=== PATIENT | female | born 1970 | race Caucasian/White ===

== ENCOUNTER 2018-07-15 21:16 | Emergency (ER) | payer SELFPAY ==
[2018-07-15] MEDS ORDERED: Bupivacaine PF 0.5% 30 ML VIAL ONE (21:44)
== END 2018-07-15 22:18 | disposition home or self-care (01) ==
LOC: MADERS 21:16
DX: K04.7 Periapical abscess without sinus (principal); F17.210 Nicotine dependence, cigarettes, uncomplicated; Z79.891 Long term (current) use of opiate analgesic
CPT/HCPCS: 64400; S0020

== ENCOUNTER 2018-11-05 21:14 | Emergency (ER) | payer SELFPAY ==
[2018-11-05] MEDS ORDERED: Acetaminophen/Codeine 30-300mg Tablet ONE (22:00)
[2018-11-05] MEDS ORDERED: Ibuprofen 800 MG TAB ONE (22:01)
[2018-11-05] MEDS ORDERED: metroNIDAZOLE 250 MG TAB ONE ×2 (22:01→22:02)
[2018-11-05] MEDS ORDERED: Amoxicillin/Potassium Clav 875 MG TAB ONE (22:01)
== END 2018-11-05 23:32 | disposition home or self-care (01) ==
LOC: MADERS 21:14
DX: K11.5 Sialolithiasis (principal); K05.00 Acute gingivitis, plaque induced; Z71.6 Tobacco abuse counseling; F17.210 Nicotine dependence, cigarettes, uncomplicated
CPT/HCPCS: 99406

== ENCOUNTER 2019-11-01 18:16 | Emergency (ER) | payer SELFPAY ==
[2019-11-01] MEDS ORDERED: Bicillin LA 1.2 MILLION UNITS/2 ML SYRINGE ONE (18:58)
[2019-11-01] MEDS ORDERED: traMADol HCl 50 MG TAB ONE (20:43)
== END 2019-11-01 19:22 | disposition home or self-care (01) ==
LOC: MADERS 18:16
DX: K04.7 Periapical abscess without sinus (principal); F17.210 Nicotine dependence, cigarettes, uncomplicated
CPT/HCPCS: 96372; 99282; J0561

== ENCOUNTER 2019-11-02 11:21 | Emergency (ER) | payer SELFPAY ==
[2019-11-02] MEDS ORDERED: Ketorolac Tromethamine 60 MG/2 ML VIAL ONE (11:48)
[2019-11-02] MEDS ORDERED: Lidocaine Viscous Sol 2% 15 ml UD Cup ONE (11:48)
[2019-11-02] MEDS ORDERED: Fentanyl 100 MCG/2 ML VIAL ONE (11:48)
[2019-11-02] MEDS ORDERED: HYDROcodone/Acetaminophen 5/325 mg Tablet ONE (12:16)
[2019-11-02] MEDS ORDERED: Dicyclomine 10 MG CAP ONE (13:32)
== END 2019-11-02 12:20 | disposition home or self-care (01) ==
LOC: MADERS 11:21
DX: K02.9 Dental caries, unspecified (principal); K08.89 Other specified disorders of teeth and supporting structures; F17.210 Nicotine dependence, cigarettes, uncomplicated
CPT/HCPCS: 96372; 99282; J1885; J3010

== ENCOUNTER 2019-11-03 17:29 | Emergency (ER) | payer SELFPAY ==
[2019-11-03] MEDS ORDERED: Bupivacaine HCl 0.5%/Epinephrine 1:200,000/PF 30 ml Vial ONE (18:00)
[2019-11-03] MEDS ORDERED: Amoxicillin/Potassium Clav 875 MG TAB ONE (18:00)
[2019-11-03] MEDS ORDERED: Lidocaine Viscous Sol 2% 15 ml UD Cup ONE (18:14)
== END 2019-11-03 18:15 | disposition home or self-care (01) ==
LOC: MADERS 17:29
DX: K04.7 Periapical abscess without sinus (principal); R59.0 Localized enlarged lymph nodes; F17.210 Nicotine dependence, cigarettes, uncomplicated
CPT/HCPCS: 64400; J0670